=== PATIENT | female | born 1940 | race Caucasian/White ===

== ENCOUNTER 2023-07-28 08:34 | Inpatient (IN) | payer OTHER ==
[2023-07-28] VITALS (12 sets, daily range): BP systolic 108–138; BP diastolic 39–86; PULSE 66–80; RESP 12–21; TEMP 97.3–97.5; O2SAT 93–100
[~2023-07-28] VITALS: Ht 154.9 cm; Wt 68.1 kg
[2023-07-28 09:13] LABS: Chloride 107 mmol/L (98-107); Potassium 4.8 mmol/L (3.5-5.1); Sodium 140 mmol/L (136-145)
[2023-07-28 09:14] LABS: Anion Gap 1 (5-15); Calcium 9.7 mg/dL (8.5-10.1); Carbon Dioxide 32 mmol/L (20-30)
[2023-07-28 09:18] LABS: Basophils # (auto) 0 10 ^3/uL (0-0.2); Basophils % (auto) 0.2 % (0.0-2.0); Eosinophils # (auto) 0 10 ^3/uL (0-0.8); Eosinophils % (auto) 0.4 % (0.0-7.0); Hematocrit 46.4 % (36.0-46.0); Hemoglobin 15.8 g/dL (12.2-16.2); Mean Corpuscular Hemoglobin 31.2 pg (28.0-32.0); Mean Corpuscular Volume 91.8 fL (80.0-100.0); Monocytes # (auto) 0.3 10 ^3/uL (0-1.3); Monocytes % (auto) 5.3 % (0.0-12.0); Neutrophils # (auto) 5.2 10 ^3/uL (1.6-8.6); Neutrophils % (auto) 79.1 % (37.0-80.0); Red Blood Cells 5.06 10^6/uL (4.0-5.20); Red Cell Distribution Width 13.1 % (11.8-14.3); White Blood Cell 6.5 10^3/uL (4.4-10.8)
[2023-07-28 09:19] LABS: BUN/Creatinine Ratio 13.2 (10.0-20.0); Blood Urea Nitrogen 12 mg/dL (9-23); Glucose 152 mg/dL (74-106)
[2023-07-28] MEDS: HEPARIN DRIP/D5W 100UNITS/ML 250 ML IV SCH (09:30)
[2023-07-28] MEDS: ASPirin 81 mg TAB PO ONE ×2 (09:33→11:06)
[2023-07-28 09:43] LABS: Urine Bacteria FEW /hpf (None Seen); Urine Blood Negative /uL (Negative); Urine Clarity Clear (Clear); Urine Color Light-Yellow (Yellow); Urine Protein, UAD Negative (Negative); Urine Specific Gravity 1.007 (1.001-1.035); Urine Urobilinogen Normal (Negative); Urine WBC 3 /hpf (0 - 5)
[2023-07-28] MEDS: HEPARIN SODIUM (PORCINE) 5000 UNITS/ML 1ML VIAL IV ONE (09:48)
[2023-07-28] MEDS ORDERED: MORPHINE SULFATE INJ 2 MG/ml SYRG IV PRN ×2 (10:30→10:45)
[2023-07-28] MEDS ORDERED: NITROGLYCERIN 0.4 MG SL TAB SL PRN (10:45)
[2023-07-28 10:50] LABS: Magnesium 2.2 mg/dL (1.6-2.6)
[2023-07-28] MEDS: CLOPIDOGREL BISULFATE 75 MG TAB PO ONE (11:07)
[2023-07-28 11:20] LABS: Partial Thromboplastin Time 28.7 SEC (24.5-34.5); Prothrombin Time 10.6 sec (9.3-11.8)
[2023-07-28] MEDS: NITROGLYCERIN 50MG/250ML 250 ML IV ONE (11:22)
[2023-07-28] MEDS: InsuLIN REG 1unit/0.01ml Soln (100units/ml) SC ONE (12:15)
[2023-07-28] MEDS: ACCU-CHEK COMFORT CURVE STRIP VI ONE (12:15)
[2023-07-28] MEDS: DEXTROSE (50%) 50ML SYRG IV ONE (12:15)
[2023-07-28] MEDS: LIDOCAINE 2%HCL (LOCAL ANESTH.) INJ 20ML MDV ONE (13:52)
[2023-07-28] MEDS: SODIUM CHL 0.9% 50 ML ONE (14:22)
[2023-07-28] MEDS: ANGIOMAX 250 MG VIAL IV ONE (14:22)
[2023-07-28] MEDS: HEPARIN SODIUM (PORCINE) 5000 UNITS/ML 1ML VIAL ONE (14:22)
[2023-07-28] MEDS: VERAPAMIL 2.5MG/ML INJ 2ML VIAL IV ONE (14:22)
[2023-07-28] MEDS: MIDAZOLAM HCL 2MG/2ML 2ml VIAL (1mg/ml) ONE (14:23)
[2023-07-28] MEDS: fentaNYL CITRATE 100 MCG/2 ML VL ONE (14:23)
[2023-07-28] MEDS: IODIXANOL 320MG/ML 100ML BTL IV ONE (14:23)
[2023-07-28] MEDS ORDERED: NITROGLYCERIN 0.4MG/HR TOPICAL PATCH TD ONE (15:15)
[2023-07-28 18:54] LABS: INR 1.04 (0.9-1.15)
[2023-07-28 19:00] LABS: Partial Thromboplastin Time 75.2 SEC (24.5-34.5)
[2023-07-28] MEDS: ATORVASTATIN 20 MG TAB PO SCH (22:17)
[2023-07-28] MEDS: SACUBITRIL-VALSARTAN 24mg/26mg TAB PO SCH (22:18)
[2023-07-29] VITALS (7 sets, daily range): BP systolic 114–142; BP diastolic 63–94; PULSE 65–76; RESP 16–18; TEMP 97.1–98.4; O2SAT 94–99
[2023-07-29 01:32] LABS: INR 1.03 (0.9-1.15); Prothrombin Time 10.9 sec (9.3-11.8)
[2023-07-29] MEDS: HEPARIN DRIP/D5W 100UNITS/ML 250 ML IV SCH (02:28)
[2023-07-29 06:50] LABS: Alanine Aminotransferase 35 U/L (7-40); Albumin 3.6 g/dL (3.2-4.8); Alkaline Phosphatase 77 U/L (46-116); Anion Gap 9 (5-15); Aspartate Aminotransferase 188 U/L (13-40); BUN/Creatinine Ratio 21.7 (10.0-20.0); Blood Urea Nitrogen 15 mg/dL (9-23); Calcium 8.9 mg/dL (8.7-10.4); Carbon Dioxide 27 mmol/L (20-30); Chloride 107 mmol/L (98-107); Glucose 128 mg/dL (74-106); Potassium 4.1 mmol/L (3.5-5.1); Sodium 143 mmol/L (136-145)
[2023-07-29 06:51] LABS: Bilirubin, Total 0.7 mg/dL (0.2-1.0); Total Protein 5.5 g/dL (5.7-8.2)
[2023-07-29 08:02] LABS: Basophils # (auto) 0 10 ^3/uL (0-0.2); Basophils % (auto) 0.3 % (0.0-2.0); Eosinophils # (auto) 0 10 ^3/uL (0-0.8); Eosinophils % (auto) 0.8 % (0.0-7.0); Hematocrit 40.7 % (36.0-46.0); Hemoglobin 13.9 g/dL (12.2-16.2); Lymphocytes # (auto) 1.3 10 ^3/uL (0.4-5.4); Mean Corpuscular Hemoglobin 31.8 pg (28.0-32.0); Mean Corpuscular Hgb Conc. 34.2 g/dL (32.0-36.0); Mean Corpuscular Volume 92.8 fL (80.0-100.0); Monocytes # (auto) 0.5 10 ^3/uL (0-1.3); Monocytes % (auto) 7.9 % (0.0-12.0); Red Blood Cells 4.38 10^6/uL (4.0-5.20); Red Cell Distribution Width 13.3 % (11.8-14.3); White Blood Cell 5.8 10^3/uL (4.4-10.8)
[2023-07-29] MEDS: ASPirin 81 mg TAB PO SCH (09:16)
[2023-07-29 09:17] LABS: INR 1.06 (0.9-1.15); Partial Thromboplastin Time 56.5 SEC (24.5-34.5); Prothrombin Time 11.2 sec (9.3-11.8)
[2023-07-29] MEDS: EMPAGLIFLOZIN 10 MG TAB PO SCH (09:17)
[2023-07-29] MEDS: METOPROLOL SUCCINATE XL 50 MG TAB PO SCH (09:17)
[2023-07-29] MEDS: NITROGLYCERIN 0.4MG/HR TOPICAL PATCH TD SCH (09:22)
[2023-07-29] MEDS: SPIRONOLACTONE 25 MG TAB PO SCH (09:29)
[2023-07-29] MEDS ORDERED: CLOPIDOGREL BISULFATE 75 MG TAB PO SCH (10:00)
[2023-07-29 16:24] LABS: INR 1.03 (0.9-1.15); Partial Thromboplastin Time 55.1 SEC (24.5-34.5); Prothrombin Time 10.9 sec (9.3-11.8)
[2023-07-29 23:49] LABS: INR 1.03 (0.9-1.15); Prothrombin Time 10.9 sec (9.3-11.8)
[2023-07-30] VITALS (9 sets, daily range): BP systolic 111–141; BP diastolic 61–82; PULSE 63–79; RESP 15–18; TEMP 97.6–98.4; O2SAT 95–99
[2023-07-30 06:51] LABS: Basophils # (auto) 0 10 ^3/uL (0-0.2); Basophils % (auto) 0.5 % (0.0-2.0); Eosinophils # (auto) 0 10 ^3/uL (0-0.8); Eosinophils % (auto) 0.7 % (0.0-7.0); Hematocrit 44.4 % (36.0-46.0); Hemoglobin 15.3 g/dL (12.2-16.2); Lymphocytes # (auto) 1.3 10 ^3/uL (0.4-5.4); Lymphocytes % (auto) 24.8 % (10.0-50.0); Mean Corpuscular Hemoglobin 31.6 pg (28.0-32.0); Mean Corpuscular Hgb Conc. 34.4 g/dL (32.0-36.0); Mean Corpuscular Volume 91.8 fL (80.0-100.0); Monocytes # (auto) 0.4 10 ^3/uL (0-1.3); Monocytes % (auto) 7.4 % (0.0-12.0); Neutrophils # (auto) 3.6 10 ^3/uL (1.6-8.6); Neutrophils % (auto) 66.6 % (37.0-80.0); Red Blood Cells 4.83 10^6/uL (4.0-5.20); Red Cell Distribution Width 12.9 % (11.8-14.3); White Blood Cell 5.4 10^3/uL (4.4-10.8)
[2023-07-30 07:18] LABS: Alanine Aminotransferase 30 U/L (7-40); Albumin 4.2 g/dL (3.2-4.8); Alkaline Phosphatase 87 U/L (46-116); Anion Gap 2 (5-15); Aspartate Aminotransferase 93 U/L (13-40); BUN/Creatinine Ratio 15.5 (10.0-20.0); Blood Urea Nitrogen 13 mg/dL (9-23); Calcium 9.6 mg/dL (8.5-10.1); Carbon Dioxide 32 mmol/L (20-30); Chloride 106 mmol/L (98-107); Glucose 140 mg/dL (74-106); Potassium 4.2 mmol/L (3.5-5.1); Sodium 140 mmol/L (136-145)
[2023-07-30 07:19] LABS: Bilirubin, Total 0.6 mg/dL (0.2-1.0); Total Protein 6.6 g/dL (5.7-8.2)
[2023-07-30] MEDS: ONDANSETRON HCL 4 MG/2 ML VIAL IV PRN (10:35)
[2023-07-30] MEDS: ACETAMINOPHEN 500 MG TAB PO PRN (10:38)
[2023-07-31] VITALS (7 sets, daily range): BP systolic 114–128; BP diastolic 55–65; PULSE 60–66; RESP 15–19; TEMP 36.8; O2SAT 95–97
[2023-07-31 05:59] LABS: Basophils # (auto) 0 10 ^3/uL (0-0.2); Basophils % (auto) 0.3 % (0.0-2.0); Eosinophils # (auto) 0.1 10 ^3/uL (0-0.8); Eosinophils % (auto) 1.1 % (0.0-7.0); Hematocrit 42.1 % (36.0-46.0); Hemoglobin 14.2 g/dL (12.2-16.2); Lymphocytes # (auto) 1.1 10 ^3/uL (0.4-5.4); Lymphocytes % (auto) 20.8 % (10.0-50.0); Mean Corpuscular Hgb Conc. 33.8 g/dL (32.0-36.0); Mean Corpuscular Volume 91.8 fL (80.0-100.0); Monocytes # (auto) 0.4 10 ^3/uL (0-1.3); Monocytes % (auto) 7.3 % (0.0-12.0); Neutrophils # (auto) 3.9 10 ^3/uL (1.6-8.6); Neutrophils % (auto) 70.5 % (37.0-80.0); Red Blood Cells 4.58 10^6/uL (4.0-5.20); Red Cell Distribution Width 13.5 % (11.8-14.3); White Blood Cell 5.5 10^3/uL (4.4-10.8)
[2023-07-31 06:15] LABS: INR 1.02 (0.9-1.15); Partial Thromboplastin Time 37.9 SEC (24.5-34.5); Prothrombin Time 10.8 sec (9.3-11.8)
[2023-07-31 06:22] LABS: Calcium 9.6 mg/dL (8.5-10.1); Chloride 105 mmol/L (98-107); Potassium 4.5 mmol/L (3.5-5.1); Sodium 140 mmol/L (136-145)
[2023-07-31 06:23] LABS: Anion Gap 6 (5-15); Carbon Dioxide 29 mmol/L (20-30)
[2023-07-31 06:28] LABS: BUN/Creatinine Ratio 12.7 (10.0-20.0); Blood Urea Nitrogen 14 mg/dL (9-23); Glucose 158 mg/dL (74-106)
[2023-07-31 14:15] LABS: INR 1.03 (0.9-1.15); Partial Thromboplastin Time 67.8 SEC (24.5-34.5); Prothrombin Time 10.9 sec (9.3-11.8)
[2023-07-31 20:12] LABS: INR 1.02 (0.9-1.15); Prothrombin Time 10.8 sec (9.3-11.8)
== END 2023-07-31 20:42 | disposition short-term general hospital (02) | DRG 282 ==
LOC: EDUNIT# 08:34 → ER 08:34 → EDBD 08:34 → TELE 10:36 → TELE-WESTW 17:25
PROVIDERS: ADMIT Internal Medicine; ATTEND Internal Medicine
PROC: 4A023N7 Measurement of Cardiac Sampling and Pressure, Left Heart, Percutaneous Approach (ICD-10-PCS; principal; 2023-07-28)
PROC: B211YZZ Fluoroscopy of Multiple Coronary Arteries using Other Contrast (ICD-10-PCS; 2023-07-28)
DX: I21.4 Non-ST elevation (NSTEMI) myocardial infarction (principal); E11.9 Type 2 diabetes mellitus without complications; E78.5 Hyperlipidemia, unspecified; I10 Essential (primary) hypertension; I25.10 Atherosclerotic heart disease of native coronary artery without angina pectoris; I25.2 Old myocardial infarction; Z82.49 Family history of ischemic heart disease and other diseases of the circulatory system; Z84.1 Family history of disorders of kidney and ureter; Z90.710 Acquired absence of both cervix and uterus; Z90.49 Acquired absence of other specified parts of digestive tract; Z79.84 Long term (current) use of oral hypoglycemic drugs
CPT/HCPCS: 36415; 71045; 80048; 80053; 80061; 81001; 83036; 83735; 83880; 84443; 84484; 85025; 85610; 85730; 93005; 93306; 99152; 99291; G0378; J2250; J2405; Q9967